=== PATIENT | male | born 1955 | race Caucasian/White ===

== ENCOUNTER 2018-03-08 16:42 | Emergency (ER) | payer SELFPAY ==
[2018-03-08] MEDS ORDERED: LIDOCAINE 1% 10 ML VIAL INJ ONE (16:44)
--- NOTE | 2018-03-08 16:53 | ED.PDOC ---
History of Present Illness - General Chief Complaint: Trauma Stated Complaint: Fell off horse, hit head - L shoulder pain, Lac Time Seen by Provider: 03/08/18 16:48 Source: patient, EMS Exam Limitations: no limitations - History of Present Illness Initial Comments: Had momentary loc after fall from horse into wall. Was dizzy initially Timing/Duration: 1/2 hour Severity: moderate Improving Factors: rest Worsening Factors: nothing Associated Symptoms: headaches, other - dizziness Allergies/Adverse Reactions: Allergies Penicillins Allergy (Verified 03/08/18 16:47) Unknown Home Medications: Ambulatory Orders Acetamin W/Cod #3 Tab [Tylenol w/CODEINE #3] 1 ea PO Q4HWA PRN #15 tab 03/08/18 Review of Systems - Review of Systems Constitutional: States: no symptoms reported EENTM: States: ear pain. Denies: blurred vision Respiratory: Denies: short of breath Cardiology: Denies: chest pain Gastrointestinal/Abdominal: States: nausea, vomiting Genitourinary: States: no symptoms reported Musculoskeletal: Denies: back pain, neck pain Skin: States: other - laceration to L mastoid Neurological: States: headache. Denies: numbness, paresthesia, weakness Endocrine: States: no symptoms reported Hematologic/Lymphatic: States: no symptoms reported Family Medical History - Family History Father Family History: No Known Living Status: Still Living Physical Exam - Physical Exam General Appearance: Alert, No apparent distress Eye Exam: bilateral normal Ears, Nose, Throat: hearing grossly normal, other - 2.5 cm lac to L mastoid Neck: non-tender, full range of motion, supple Respiratory: chest non-tender, lungs clear Cardiovascular/Chest: normal peripheral pulses, regular rate, rhythm, no edema Gastrointestinal/Abdominal: normal bowel sounds, non tender, soft Back Exam: normal inspection, decreased range of motion, other - tender to L interscapular area, scapula is nontender, L shoulder is nontender Extremity: normal range of motion, non-tender, normal inspection 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, no motor/sensory deficits, alert, oriented x 3 Skin Exam: normal color, warm/dry Lymphatic: no adenopathy Progress - EKG/XRAY/CT CT Ordered: Yes CT Interpretation Call Back: Yes - neg Procedures - Laceration/Wound Repair Left Temporal Wound Length (cm): 2.5 - located on L mastoid area Wound's Depth, Shape: linear Wound Explored: no foreign body removed Betadine Prep?: No Anesthesia: 1% Lidocaine Volume Anesthetic (cc's): 3 Wound Repaired With: sutures Suture Size/Type: 5:0, prolene Number of Sutures: 3 Layer Closure?: No Deep Layer Suture Size/Type: 5:0 Departure - Departure Clinical Impression: Laceration Concussion Qualifiers: Encounter type: initial encounter Loss of consciousness presence/duration: with LOC of 30 min or less Qualified Code(s): S06.0X1A - Concussion with loss of consciousness of 30 minutes or less, initial encounter Back contusion Qualifiers: Encounter type: initial encounter Laterality: left Qualified Code(s): S20.222A - Contusion of left back wall of thorax, initial encounter Disposition: Discharge to Home or Self Care Departure Forms: ED Discharge - Pt. Copy, Patient Portal Self Enrollment Instructions: DI for Trauma Prescriptions: Acetamin W/Cod #3 Tab [Tylenol w/CODEINE #3] 1 ea PO Q4HWA PRN #15 tab PRN Reason: Moderate Pain Home Medications: Ambulatory Orders Acetamin W/Cod #3 Tab [Tylenol w/CODEINE #3] 1 ea PO Q4HWA PRN #15 tab 03/08/18
[2018-03-08] MEDS ORDERED: CHLORHEXIDINE GLUCONATE 4 % 15 ML UD TOP ONE (17:18)
--- NOTE | 2018-03-08 17:29 | CT ---
EXAM DESCRIPTION: Head CLINICAL HISTORY: head injury with LOC COMPARISON: None Available TECHNIQUE: Contiguous axial CT images of the head were obtained. Coronal and sagittal reconstructions were created from the axial data. This exam was performed according to our departmental dose-optimization program, which includes automated exposure control, adjustment of the mA and/or kV according to patient size and/or use of iterative reconstruction technique. FINDINGS: The basilar artery and bilateral MCA caliber is larger than typical. This can be seen in hypertension. It is not likely related to recent trauma. Clinical correlation is recommended. There is no evidence of acute mass, mass effect, midline shift or hemorrhage. The ventricles and extra-axial CSF spaces are unremarkable. The brain parenchyma appears normal for the patient's age. No acute abnormalities of the bones is seen. IMPRESSION: No acute intracranial abnormality. Electronically signed by: Akbar Colin 03/08/2018 5:28 PM CDT
--- NOTE | 2018-03-08 17:34 | CT ---
EXAM DESCRIPTION: CT CERVICAL SPINE CLINICAL HISTORY: head injury COMPARISON: None Available. TECHNIQUE: Contiguous axial images of the cervical spine were obtained followed by reconstruction images.This exam was performed according to our departmental dose-optimization program, which includes automated exposure control, adjustment of the mA and/or kV according to patient size and/or use of iterative reconstruction technique. FINDINGS: There is no acute fracture or subluxation. The prevertebral soft tissues are within normal limits. IMPRESSION: No acute fracture or subluxation. Electronically signed by: Akbar Colin 03/08/2018 5:32 PM CDT
[2018-03-08] MEDS ORDERED: HYDROcodone 10MG/APAP 325MG 1 EA TAB PO ONE (17:42)
[2018-03-08 19:17] VITALS: BP 154/98; TEMP 98; O2SAT 98
== END 2018-03-08 18:00 | disposition home or self-care (01) ==
LOC: ER 16:42
DX: S06.0X1A Concussion with loss of consciousness of 30 minutes or less, initial encounter (principal); S20.222A Contusion of left back wall of thorax, initial encounter; S01.81XA Laceration without foreign body of other part of head, initial encounter; V80.010A Animal-rider injured by fall from or being thrown from horse in noncollision accident, initial encounter; Y93.52 Activity, horseback riding; Y92.9 Unspecified place or not applicable